=== PATIENT | male | born 1980 | race Hispanic/Latino ===

== ENCOUNTER → 2017-03-16 | Outpatient (CLI) | payer OTHER ==
--- NOTE | 2017-03-16 11:26 | Diagnostic Imaging Report ---
PROCEDURE: L-SPINE COMPLETE COMPARISON: None. INDICATIONS: LOWER BACK PAIN FINDINGS: The lumbar spine is in anatomic alignment without evidence of fracture, spondylolisthesis, or spondylolysis. Vertebral body heights and disc spaces are maintained. The paraspinal soft tissues are normal. CONCLUSION: No acute osseous abnormalities. Dictated by: Layo Sam M.D. on 03/16/2017 at 11:36 Electronically approved by: Layo Sam M.D. on 03/16/2017 at 11:36
== END ==
LOC: RAD 10:43
PROVIDERS: ATTEND Family Medicine
DX: M54.5 Low back pain (principal)
CPT/HCPCS: 72110

== ENCOUNTER 2017-07-30 17:01 | Emergency (ER) | payer BC, OTHER ==
[~2017-07-30] VITALS: Ht 177.8 cm; Wt 99.8 kg
[2017-07-30] MEDS ORDERED: SODIUM CHLORIDE 0.9% 1000ML 1,000 ML IV STA (17:12)
[2017-07-30] MEDS ORDERED: MORPHINE SULFATE 4 MG/ML SYR IV STA (17:12)
[2017-07-30] MEDS ORDERED: ONDANSETRON HCL INJ 2 MG/ML VIAL IV STA (17:12)
[2017-07-30] MEDS ORDERED: MORPHINE SULFATE 2 MG/ML SYR ONE (17:53)
[2017-07-30 18:01] LABS: CLARITY,URINE CLEAR (CLEAR); COLOR,URINE YELLOW (YELLOW)
[2017-07-30 18:02] LABS: BILIRUBIN,URINE NEGATIVE (NEGATIVE); KETONES,URINE NEGATIVE (NEGATIVE); LEUKOCYTE ESTERASE ,URINE NEGATIVE (NEGATIVE); NITRITE,URINE NEGATIVE (NEGATIVE); PROTEIN,URINE DIPSTICK NEGATIVE (NEGATIVE); URINE UROBILINOGEN 0.2 mg/dL (0.2 - 1)
[2017-07-30 18:07] LABS: BASOPHILS % 0.3 % (0.0-1.0); EOSINOPHILS # (AUTO) 0.2 (0.0-0.4); EOSINOPHILS % 1.3 % (0.0-6.0); HEMATOCRIT 41.8 % (38.2-49.6); HEMOGLOBIN 13.9 g/dL (14.0-18.0); LYMPHOCYTES # (AUTO) 3.8 (1.0-3.2); LYMPHOCYTES % 30.5 % (18.0-39.1); MEAN CORPUSCULAR HEMOGLOBIN 28.7 pg (28-32); MEAN CORPUSCULAR HGB CONC 33.3 g/dL (31-35); MEAN CORPUSCULAR VOLUME 86.4 fL (81-99); MONOCYTES # (AUTO) 0.7 (0.2-0.8); NEUTROPHILS # (AUTO) 7.7 (2.1-6.9); NEUTROPHILS % 61.6 % (38.7-80.0); PLATELET COUNT 332 x10e3/uL (140-360); RED BLOOD COUNT 4.84 x10e6/uL (4.3-5.7); RED CELL DISTRIBUTION WIDTH 12.5 % (11.7-14.4)
[2017-07-30 18:13] LABS: TRANSITIONAL EPI CELLS,URINE RARE
[2017-07-30 18:14] LABS: RBC,URINE 21-50 /HPF (0-5); WBC,URINE (MAN) 0-5 /HPF (0-5)
[2017-07-30 18:15] LABS: AMORPHOUS SEDIMENT,URINE RARE (FEW)
[2017-07-30 18:24] LABS: ALANINE AMINOTRANSFERASE 26 IU/L (0-55); ALKALINE PHOSPHATASE 92 IU/L (40-150); ANION GAP 14.6 mmol/L (8-16); BLOOD UREA NITROGEN 13 mg/dL (7-26); BUN/CREATININE RATIO 16 (6-25); CALCIUM 9.9 mg/dL (8.4-10.2); CARBON DIOXIDE 30 mmol/L (22-29); CHLORIDE 103 mmol/L (98-107); EST GLOMERULAR FILTRATION RATE > 60 ML/MIN (60-); GLUCOSE 93 mg/dL (74-118); POTASSIUM 3.6 mmol/L (3.5-5.1); SODIUM 144 mmol/L (136-145)
--- NOTE | 2017-07-30 18:28 | Diagnostic Imaging Report ---
EXAM: CT Abdomen and Pelvis WITHOUT contrast INDICATION: Back pain. Right flank pain. \S\STONE PROTOCOL COMPARISON: CT abdomen and pelvis 12/06/2013 TECHNIQUE: Abdomen and pelvis were scanned utilizing a multidetector helical scanner from the lung base to the pubic symphysis without administration of IV contrast. Absence of intravenous contrast decreases sensitivity for detection of focal lesions and vascular pathology. Coronal and sagittal reformations were obtained. Stone protocol is performed. IV CONTRAST: None ORAL CONTRAST: Water COMPLICATIONS: None RADIATION DOSE: Total DLP: 994.43 mGy*cm Estimated effective dose: (DLP x 0.015 x size factor) mSv CTDIvol has been reviewed. It is below the limits set by the Radiation Protocol Committee (RPC). FINDINGS: LINES and TUBES: None. LOWER THORAX: Unremarkable HEPATOBILIARY: No focal hepatic lesions. No biliary ductal dilation. GALLBLADDER: There are cholecystectomy clips. SPLEEN: No splenomegaly. PANCREAS: No focal masses or ductal dilatation. ADRENALS: No adrenal nodules KIDNEYS/URETERS: Compensatory hypertrophy of the right kidney with atrophic left kidney with multifocal scarring. Mild bilateral pelviectasis, unchanged. No cystic or solid mass lesions. 0.55 cm stone at the right UPJ junction is unchanged. Previous mild inflammatory changes have resolved. GI TRACT: No abnormal distention, wall thickening, or evidence of bowel obstruction. Appendix is normal. PELVIC ORGANS/BLADDER: Unremarkable. LYMPH NODES: No lymphadenopathy. VESSELS: Unremarkable. PERITONEUM / RETROPERITONEUM: No free air or fluid. BONES: Unremarkable. SOFT TISSUES: Unremarkable. IMPRESSION: No change of 0.55 cm stone in the right UPJ. Mild bilateral renal pelviectasis, which is unchanged. No evidence of obstruction. Signed by: Dr. David Ross M.D. on 07/30/2017 6:24 PM
[2017-07-30] MEDS ORDERED: KETOROLAC TROMETHAMINE 30 MG/ML VIAL IV STA (18:44)
[2017-07-30 19:29] VITALS: BP 123/74
== END 2017-07-30 19:05 | disposition home or self-care (01) ==
LOC: ER 17:01
DX: N20.1 Calculus of ureter (principal)
CPT/HCPCS: 36415; 74176; 80053; 81001; 85025; 87086; 99284; J2270; J2405; J7030

== ENCOUNTER → 2017-08-24 | Day surgery (SDC) | payer BC ==
[~2017-08-24] MED LIST: CEFTRIAXONE SOD 1 GM VIAL ONE; DEXAMETHASONE SOD PHOS INJ 4 MG/ML VIAL ONE; FENTANYL CITRATE/PF 100MCG/2 ML INJ ONE; FLOMAX0.4 MG PO; IOPAMIDOL 300MG/ML 50ML INFUS..BTL IV ONE; LIDOCAINE HCL 2% LOCAL INJ 5 ML SDV VIAL INJ ONE; MIDAZOLAM HCL 2 MG/2 ML VIAL ONE; ONDANSETRON HCL INJ 2 MG/ML VIAL ONE; PROPOFOL IV EMULSION 10 MG/ML 20 ML VIAL ONE; SEVOFLURANE INHAL SOLN 250 ML PEN BTL ONE; TYLENOL WITH C1 EACH PO
--- NOTE | 2017-08-24 13:45 | Diagnostic Imaging Report ---
PROCEDURE:X-RAY ABDOMEN - KUB COMPARISON:CT abdomen and pelvis 07/30/2017. INDICATIONS:RENAL STONES FINDINGS: 4 mm ovoid calculus projecting inferomedial to the right renal shadow may represent the ureteropelvic junction calculus identified on comparison CT. No additional calcifications project over the renal shadows or expected ureteral courses. Bowel gas pattern is nonobstructive. Regional skeletal structures are intact. CONCLUSION: Questionable visualization of the right ureteropelvic junction calculus identified on comparison CT 07/30/2017. No additional plain film evidence of urolithiasis. Dictated by: Bharathi David M.D. on 08/24/2017 at 13:50 Electronically approved by: Bharathi David M.D. on 08/24/2017 at 13:50
--- NOTE | 2017-08-26 07:45 | Operative Report ---
DATE OF PROCEDURE: August 24, 2017 UROLOGY OPERATIVE REPORT PREOPERATIVE DIAGNOSIS: Right ureteral calculus. POSTOPERATIVE DIAGNOSIS: Right renal calculus. PROCEDURES 1. Cystourethroscopy with right stone manipulation (entire separate procedure performed for right ureteral calculus. 2. Staged right-sided shockwave lithotripsy (entire separate procedure for right kidney stone). 3. Supervision of fluoroscopy. 4. Interpretation of retrograde pyelography. ANESTHESIA: General. ESTIMATED BLOOD LOSS: Minimal. COMPLICATIONS: None. INDICATIONS: Mr. Jay is a 37-year-old male with symptomatic right ureteral stone. He and I had a long discussion about alternatives, risks, and benefits including doing nothing, ureteroscopy, shockwave lithotripsy, percutaneous surgery, open surgery. He voiced understanding of the options, alternatives, risks, and benefits and elected to proceed. PROCEDURE IN DETAIL: After informed consent was obtained, the patient was taken to the operative site and placed supine on the table, and underwent general anesthesia by the anesthesia service. He was then placed in the dorsal lithotomy position and sterilely prepped and draped in the standard fashion for cystoscopy. A 22.5-Z[place]ian cystoscope was inserted per urethra. It was noted to pass normal. Panendoscopy of the bladder revealed no tumors and no stones. Right ureteral orifice was catheterized. A 5-Z[place]ian open-ended catheter was advanced to the level of the proximal ureteral stone. A vigorous injection of contrast moved the stone somewhat. Utilizing a guidewire and an open-ended catheter, the stone was manipulated into the renal pelvis. At this time, with the higher success rate, the stone was localized in the x, y, and z planes. A total of 3000 shocks were delivered to the kidney stone. The stone was seen to have good fragmentation. There was good drainage of the contrast. There was no evidence of obstruction, so stent was not left. The bladder was drained. The patient was awakened from anesthesia and transported to the recovery room in excellent condition. SUPERVISION OF FLUOROSCOPY, INTERPRETATION OF RETROGRADE PYELOGRAPHY: I was present throughout the entire procedure and I supervised fluoroscopy. There was no radiologist present at any time during this procedure. Attention was turned toward the right ureteral orifice, catheterized with a 5-Z[place]ian open-ended catheter. Retrograde pyelogram was performed revealing a delicate ureter. Manipulation of the right ureteral calculus into the right renal pelvis. Postoperative views on the right side revealed good fragmentation of right renal calculus. No evidence of hydronephrosis. Job#: [id number] CQ
== END | disposition home or self-care (01) ==
LOC: OR 12:36
PROVIDERS: ATTEND Urology
DX: N20.1 Calculus of ureter (principal); N13.30 Unspecified hydronephrosis; I10 Essential (primary) hypertension; Z68.31 Body mass index [BMI] 31.0-31.9, adult; Z84.1 Family history of disorders of kidney and ureter
CPT/HCPCS: 50590; 74018; J0696; J1100; J2001; J2250; J2405; Q9967

== ENCOUNTER → 2017-09-20 | Outpatient (CLI) | payer BC ==
[~2017-09-20] MED LIST changes: -CEFTRIAXONE SOD 1 GM VIAL ONE; -DEXAMETHASONE SOD PHOS INJ 4 MG/ML VIAL ONE; -FENTANYL CITRATE/PF 100MCG/2 ML INJ ONE; -IOPAMIDOL 300MG/ML 50ML INFUS..BTL IV ONE; -LIDOCAINE HCL 2% LOCAL INJ 5 ML SDV VIAL INJ ONE; -MIDAZOLAM HCL 2 MG/2 ML VIAL ONE; -ONDANSETRON HCL INJ 2 MG/ML VIAL ONE; -PROPOFOL IV EMULSION 10 MG/ML 20 ML VIAL ONE; -SEVOFLURANE INHAL SOLN 250 ML PEN BTL ONE
--- NOTE | 2017-09-20 12:22 | Diagnostic Imaging Report ---
PROCEDURE:X-RAY ABDOMEN - KUB COMPARISON:[facility], DX, ABDOMEN-1VIEW (KUB), 08/24/2017, 13:24. INDICATIONS:KIDNEY STONE FINDINGS: There is a non-obstructed bowel-gas pattern. The previously visualized 4 mm radiopaque density projecting inferomedial to the right renal shadow on prior exam is not seen on the current exam. No radiopaque densities project over the renal shadows, expected course of the ureters or bladder. No acute bony abnormalities. CONCLUSION: No radiopaque densities project over the genitourinary system. The previously visualized 4 mm radiopaque density projecting inferomedial to the right renal shadow on prior exam is not seen on the current exam. Brandon Almendarez M.D. Dictated by: Brandon Almendarez M.D. on 09/20/2017 at 12:27 Electronically approved by: Brandon Almendarez M.D. on 09/20/2017 at 12:27
== END ==
LOC: RAD 10:49
PROVIDERS: ATTEND Urology
DX: N13.30 Unspecified hydronephrosis (principal); R31.21 Asymptomatic microscopic hematuria
CPT/HCPCS: 74018

== ENCOUNTER 2019-01-30 07:52 | Emergency (ER) | payer BC ==
[~2019-01-30] VITALS: Ht 177.8 cm; Wt 99.8 kg
[2019-01-30] MEDS ORDERED: SODIUM CHLORIDE 0.9% 1000ML 1,000 ML ONE (08:27)
[2019-01-30] MEDS ORDERED: KETOROLAC TROMETHAMINE 30 MG/ML VIAL ONE (08:27)
[2019-01-30] MEDS ORDERED: CEFTRIAXONE SOD 1 GM/NS 50 ML 50 ML IV STA (08:29)
[2019-01-30] MEDS ORDERED: MORPHINE SULFATE INJ 4 MG/ML INJ 1ML IV STA (08:29)
[2019-01-30] MEDS ORDERED: ONDANSETRON HCL INJ 2MG/ML 2ML 2 MG/ML VIAL IV STA (08:29)
[2019-01-30] MEDS ORDERED: SODIUM CHLORIDE 0.9% 1000ML 1,000 ML IV STA (08:29)
[2019-01-30] MEDS ORDERED: KETOROLAC TROMETHAMINE 30 MG/ML VIAL IV STA (08:29)
[2019-01-30 08:42] LABS: BASOPHILS % 0.3 % (0.0-1.0); EOSINOPHILS # (AUTO) 0.2 (0.0-0.4); EOSINOPHILS % 2.3 % (0.0-6.0); HEMATOCRIT 43.8 % (38.2-49.6); HEMOGLOBIN 14.4 g/dL (14.0-18.0); LYMPHOCYTES # (AUTO) 2.5 (1.0-3.2); LYMPHOCYTES % 24.7 % (18.0-39.1); MEAN CORPUSCULAR HEMOGLOBIN 28.5 pg (28-32); MEAN CORPUSCULAR HGB CONC 32.9 g/dL (31-35); MEAN CORPUSCULAR VOLUME 86.6 fL (81-99); MONOCYTES # (AUTO) 0.5 (0.2-0.8); NEUTROPHILS # (AUTO) 6.8 (2.1-6.9); NEUTROPHILS % 67.2 % (38.7-80.0); PLATELET COUNT 352 x10e3/uL (140-360); RED BLOOD COUNT 5.06 x10e6/uL (4.3-5.7); RED CELL DISTRIBUTION WIDTH 12.5 % (11.7-14.4)
[2019-01-30 08:46] LABS: CLARITY,URINE CLEAR (CLEAR); COLOR,URINE YELLOW (YELLOW)
[2019-01-30 08:47] LABS: KETONES,URINE NEGATIVE (NEGATIVE); LEUKOCYTE ESTERASE ,URINE NEGATIVE (NEGATIVE); NITRITE,URINE NEGATIVE (NEGATIVE); PROTEIN,URINE DIPSTICK NEGATIVE (NEGATIVE)
[2019-01-30 08:48] LABS: BILIRUBIN,URINE NEGATIVE (NEGATIVE); URINE UROBILINOGEN 0.2 mg/dL (0.2 - 1)
[2019-01-30 08:59] LABS: BACTERIA,URINE FEW /HPF; EPITHELIAL CELLS,URINE FEW /LPF; RBC,URINE 0-5 /HPF (0-5); WBC,URINE (MAN) 0-5 /HPF (0-5)
[2019-01-30 09:14] LABS: ALANINE AMINOTRANSFERASE 20 IU/L (0-55); ALKALINE PHOSPHATASE 92 IU/L (40-150); ANION GAP 13.5 mmol/L (8-16); BLOOD UREA NITROGEN 11 mg/dL (7-26); BUN/CREATININE RATIO 14 (6-25); CALCIUM 9.5 mg/dL (8.4-10.2); CARBON DIOXIDE 26 mmol/L (22-29); CHLORIDE 103 mmol/L (98-107); CREATININE, SERUM 0.81 mg/dL (0.72-1.25); EST GLOMERULAR FILTRATION RATE > 60 ML/MIN (60-); GLUCOSE 94 mg/dL (74-118); POTASSIUM 4.5 mmol/L (3.5-5.1); SODIUM 138 mmol/L (136-145)
--- NOTE | 2019-01-30 10:02 | Diagnostic Imaging Report ---
CT of the abdomen and pelvis, without contrast. History: Flank pain. Comparison: CT abdomen/pelvis without contrast from 07/20/2017. Technique: Multidetector CT scanning of the abdomen and pelvis was performed from the level of the lung bases to the inferior pubic rami after intravenous and oral administration of contrast. Coronal and sagittal multiplanar reformations were obtained. RADIATION DOSE: Total DLP: 883.46 mGy*cm Dose modulation, iterative reconstruction, and/or weight based adjustment of the mA/kV was utilized to reduce the radiation dose to as low as reasonably achievable. FINDINGS: A partially visualized calcified pleural plaque is identified within the anterior left hemithorax on the first few images of the examination. A calcified granuloma is noted within the lingula. The visualized lungs are otherwise unremarkable. The imaged portion the heart demonstrates no significant abnormalities. The liver is normal in size and attenuation on this noncontrast enhanced examination. The gallbladder is surgically absent. There is no biliary ductal dilatation. The stomach, spleen, pancreas, and bilateral adrenal glands demonstrate unremarkable noncontrast appearance. Stable atrophic changes of the left kidney with areas of multifocal scarring/cortical thinning. The right kidney is normal in size and location. There is no evidence for nephrolithiasis. There is stable bilateral pelviectasis without true intrarenal hydronephrosis. Probable extrarenal pelvis noted on the left. The ureters are normal course and caliber without evidence for radiopaque stone. The urinary bladder and prostate demonstrate no significant abnormalities. The abdominal aorta is normal course and caliber. The IVC is normal in caliber. The visualized loops of small and large bowel demonstrate no evidence of obstruction or inflammation. The appendix is visualized and appears unremarkable. There is no ascites or intraperitoneal free air. No abnormally enlarged lymph nodes are identified within the abdomen or pelvis. A tiny fat-containing left inguinal hernia is noted. The osseous structures demonstrate no evidence for acute fracture or destructive process. The extraperitoneal soft tissues are unremarkable. IMPRESSION: 1. No acute abdominopelvic process identified. Specifically no evidence for nephrolithiasis or obstructive uropathy. 2. Stable atrophic changes of the left kidney. 3. Partially visualized calcified pleural plaque noted within the anterior left hemithorax. Signed by: Dr. Alejandro Livingston MD on 01/30/2019 9:58 AM
[2019-01-30 10:14] LABS: LIPASE 28 U/L (8-78)
== END 2019-01-30 11:21 | disposition home or self-care (01) ==
LOC: ER 07:52
DX: R10.9 Unspecified abdominal pain (principal); S39.012A Strain of muscle, fascia and tendon of lower back, initial encounter
CPT/HCPCS: 36415; 74176; 80053; 81001; 83690; 85025; 87086; 99284; J0696; J1885; J7030

== ENCOUNTER 2020-05-15 09:37 | Emergency (ER) | payer BC ==
[~2020-05-15] VITALS: Ht 180.3 cm; Wt 113.4 kg
[2020-05-15] MEDS ORDERED: ONDANSETRON HCL INJ 2MG/ML 2ML 2 MG/ML VIAL IV STA (09:58)
[2020-05-15] MEDS ORDERED: SODIUM CHLORIDE 0.9% 1000ML 1,000 ML IV STA (09:58)
[2020-05-15] MEDS ORDERED: KETOROLAC TROMETHAMINE 30 MG/ML VIAL IV STA (09:58)
[2020-05-15 10:25] LABS: BASOPHILS % 0.2 % (0.0-1.0); EOSINOPHILS # (AUTO) 0.2 (0.0-0.4); EOSINOPHILS % 1.8 % (0.0-6.0); HEMATOCRIT 42.3 % (38.2-49.6); LYMPHOCYTES # (AUTO) 2.4 (1.0-3.2); LYMPHOCYTES % 25.1 % (18.0-39.1); MEAN CORPUSCULAR HEMOGLOBIN 28.8 pg (28-32); MEAN CORPUSCULAR HGB CONC 33.1 g/dL (31-35); MONOCYTES # (AUTO) 0.6 (0.2-0.8); NEUTROPHILS # (AUTO) 6.3 (2.1-6.9); NEUTROPHILS % 66.5 % (38.7-80.0); PLATELET COUNT 365 x10e3/uL (140-360); RED BLOOD COUNT 4.86 x10e6/uL (4.3-5.7)
[2020-05-15 10:44] LABS: CLARITY,URINE CLEAR (CLEAR); COLOR,URINE YELLOW (YELLOW); LEUKOCYTE ESTERASE ,URINE NEGATIVE (NEGATIVE); NITRITE,URINE NEGATIVE (NEGATIVE); PROTEIN,URINE DIPSTICK NEGATIVE (NEGATIVE)
[2020-05-15 10:45] LABS: KETONES,URINE TRACE (NEGATIVE); URINE UROBILINOGEN 0.2 mg/dL (0.2 - 1)
[2020-05-15 10:46] LABS: INR 0.96; PROTHROMBIN TIME 13.3 seconds (11.9-14.5)
[2020-05-15 10:47] LABS: ALANINE AMINOTRANSFERASE 29 IU/L (0-55); ALBUMIN 3.8 g/dL (3.5-5.0); ALBUMIN/GLOBULIN RATIO 0.9 (0.8-2.0); ALKALINE PHOSPHATASE 87 IU/L (40-150); ANION GAP 13.9 mmol/L (8-16); BLOOD UREA NITROGEN 9 mg/dL (7-26); BUN/CREATININE RATIO 11 (6-25); CARBON DIOXIDE 27 mmol/L (22-29); CHLORIDE 105 mmol/L (98-107); CREATININE, SERUM 0.81 mg/dL (0.72-1.25); EST GLOMERULAR FILTRATION RATE > 60 ML/MIN (60-); GLUCOSE 79 mg/dL (74-118); MAGNESIUM 1.9 MG/DL (1.3-2.1); PARTIAL THROMBOPLASTIN TIME 33.1 seconds (23.8-35.5); POTASSIUM 3.9 mmol/L (3.5-5.1); SODIUM 142 mmol/L (136-145)
[2020-05-15 10:51] LABS: EPITHELIAL CELLS,URINE RARE /LPF; RBC,URINE 0-5 /HPF (0-5)
[2020-05-15] MEDS ORDERED: CEFTRIAXONE SOD 1 GM/50 ML BAG IV ONE (11:30)
[2020-05-15] MEDS ORDERED: CEFTRIAXONE SOD 1 GM in SODIUM CHLORIDE 0.9% 50ML 50 ML IV ONE (12:00)
[2020-05-15] MEDS ORDERED: AZITHROMYCIN 250 MG TAB PO ONE (12:00)
[2020-05-15 12:09] VITALS: BP 133/82
== END 2020-05-15 12:12 | disposition home or self-care (01) ==
LOC: ER 10:00
DX: R10.9 Unspecified abdominal pain (principal); Z87.442 Personal history of urinary calculi; Z90.49 Acquired absence of other specified parts of digestive tract
CPT/HCPCS: 36415; 74176; 80053; 81001; 83735; 85025; 85610; 85730; 87086; 99284; J0696; J1885; J2405; J7030

== ENCOUNTER 2021-09-28 18:23 | Emergency (ER) | payer BC ==
[~2021-09-28] VITALS: Ht 180.3 cm; Wt 113.4 kg
[2021-09-28] MEDS ORDERED: ONDANSETRON HCL INJ 2MG/ML 2ML 2 MG/ML VIAL IV STA (19:14)
[2021-09-28] MEDS ORDERED: KETOROLAC TROMETHAMINE 30 MG/ML VIAL IV STA (19:14)
[2021-09-28 19:26] LABS: BASOPHILS % 0.2 % (0.0-1.0); EOSINOPHILS # (AUTO) 0.2 (0.0-0.4); EOSINOPHILS % 1.1 % (0.0-6.0); HEMATOCRIT 44.2 % (38.2-49.6); HEMOGLOBIN 14.4 g/dL (14.0-18.0); LYMPHOCYTES # (AUTO) 3.8 (1.0-3.2); LYMPHOCYTES % 27.1 % (18.0-39.1); MEAN CORPUSCULAR HEMOGLOBIN 28.5 pg (28-32); MEAN CORPUSCULAR HGB CONC 32.6 g/dL (31-35); MEAN CORPUSCULAR VOLUME 87.4 fL (81-99); MONOCYTES # (AUTO) 0.9 (0.2-0.8); NEUTROPHILS # (AUTO) 9.2 (2.1-6.9); NEUTROPHILS % 65.2 % (38.7-80.0); PLATELET COUNT 370 x10e3/uL (140-360); RED BLOOD COUNT 5.06 x10e6/uL (4.3-5.7); RED CELL DISTRIBUTION WIDTH 12.5 % (11.7-14.4)
[2021-09-28 19:42] LABS: ANION GAP 16.4 mmol/L (8-16); CALCIUM 9.6 mg/dL (8.4-10.2); CREATININE, SERUM 0.86 mg/dL (0.72-1.25); POTASSIUM 3.4 mmol/L (3.5-5.1)
[2021-09-28 20:14] LABS: CLARITY,URINE CLEAR (CLEAR); COLOR,URINE YELLOW (YELLOW); KETONES,URINE NEGATIVE (NEGATIVE); LEUKOCYTE ESTERASE ,URINE NEGATIVE (NEGATIVE); NITRITE,URINE NEGATIVE (NEGATIVE); PROTEIN,URINE DIPSTICK NEGATIVE (NEGATIVE); URINE UROBILINOGEN 0.2 mg/dL (0.2 - 1)
[2021-09-28 20:29] LABS: BACTERIA,URINE FEW /HPF; EPITHELIAL CELLS,URINE RARE /LPF; RBC,URINE >50 /HPF (0-5); WBC,URINE (MAN) 0-5 /HPF (0-5)
[2021-09-28] MEDS ORDERED: ONDANSETRON ODT4 MG PO (21:04)
[2021-09-28] MEDS ORDERED: HYDROCODON-ACE1 EAC9 PO (21:04)
[2021-09-28] MEDS ORDERED: FLOMAX0.4 MG PO (21:04)
[2021-09-28] MEDS ORDERED: CEFDINIR300 MG PO (21:04)
[2021-09-28 21:24] VITALS: BP 132/98
== END 2021-09-28 21:26 | disposition home or self-care (01) ==
LOC: ER 18:34
DX: N13.2 Hydronephrosis with renal and ureteral calculous obstruction (principal)
CPT/HCPCS: 36415; 74176; 80048; 81001; 85025; 99284; J1885; J2405

== ENCOUNTER → 2021-10-06 | Outpatient (CLI) | payer BC ==
[~2021-10-06] MED LIST changes: +CEFDINIR300 MG PO; +HYDROCODON-ACE1 EAC9 PO; +ONDANSETRON ODT4 MG PO
== END ==
LOC: RAD 10:26
PROVIDERS: ATTEND Urology
DX: N20.0 Calculus of kidney (principal)
CPT/HCPCS: 74018

== ENCOUNTER 2021-12-05 14:50 | Emergency (ER) | payer BC ==
[~2021-12-05] VITALS: Ht 180.3 cm; Wt 113.4 kg
[2021-12-05 15:52] LABS: CLARITY,URINE CLOUDY (CLEAR); COLOR,URINE YELLOW (YELLOW); KETONES,URINE TRACE (NEGATIVE); LEUKOCYTE ESTERASE ,URINE NEGATIVE (NEGATIVE); NITRITE,URINE NEGATIVE (NEGATIVE); PROTEIN,URINE DIPSTICK NEGATIVE (NEGATIVE); URINE UROBILINOGEN 0.2 mg/dL (0.2 - 1)
[2021-12-05 16:07] LABS: BACTERIA,URINE MODERATE /HPF; EPITHELIAL CELLS,URINE FEW /LPF; MUCUS,URINE FEW (RARE); RBC,URINE >50 /HPF (0-5)
[2021-12-05] MEDS ORDERED: ONDANSETRON HCL INJ 2MG/ML 2ML 2 MG/ML VIAL IV STA (16:37)
[2021-12-05] MEDS ORDERED: KETOROLAC TROMETHAMINE 30 MG/ML VIAL IV STA (16:37)
[2021-12-05] MEDS ORDERED: SODIUM CHLORIDE 0.9% 1000ML 1,000 ML IV SCH (16:45)
[2021-12-05 16:51] LABS: BASOPHILS % 0.3 % (0.0-1.0); EOSINOPHILS # (AUTO) 0.3 (0.0-0.4); EOSINOPHILS % 2.2 % (0.0-6.0); HEMATOCRIT 42.7 % (38.2-49.6); HEMOGLOBIN 13.7 g/dL (14.0-18.0); LYMPHOCYTES # (AUTO) 3.4 (1.0-3.2); LYMPHOCYTES % 27.6 % (18.0-39.1); MEAN CORPUSCULAR HEMOGLOBIN 28.7 pg (28-32); MEAN CORPUSCULAR HGB CONC 32.1 g/dL (31-35); MEAN CORPUSCULAR VOLUME 89.5 fL (81-99); MONOCYTES # (AUTO) 0.7 (0.2-0.8); MONOCYTES % 5.6 % (4.4-11.3); NEUTROPHILS % 64.1 % (38.7-80.0); PLATELET COUNT 367 x10e3/uL (140-360); RED BLOOD COUNT 4.77 x10e6/uL (4.3-5.7); RED CELL DISTRIBUTION WIDTH 12.4 % (11.7-14.4)
[2021-12-05] MEDS ORDERED: ONDANSETRON HCL INJ 2MG/ML 2ML 2 MG/ML VIAL ONE (16:53)
[2021-12-05] MEDS ORDERED: SODIUM CHLORIDE 0.9% 1000ML 1,000 ML ONE (16:54)
[2021-12-05] MEDS ORDERED: KETOROLAC TROMETHAMINE 30 MG/ML VIAL ONE (16:54)
[2021-12-05 17:03] LABS: ALBUMIN 3.7 g/dL (3.5-5.0); ALBUMIN/GLOBULIN RATIO 0.9 (0.8-2.0); ANION GAP 16.7 mmol/L (8-16); CALCIUM 9.2 mg/dL (8.4-10.2); CREATININE, SERUM 0.85 mg/dL (0.72-1.25); POTASSIUM 3.7 mmol/L (3.5-5.1)
[2021-12-05] MEDS ORDERED: CEFDINIR300 MG PO (17:59)
[2021-12-05] MEDS ORDERED: NITROGLYCERIN 2% OINT 1 GM PKT TOP ONE (18:00)
[2021-12-05] MEDS ORDERED: AZO STANDARD95 MG PO (18:00)
[2021-12-05] MEDS ORDERED: FLOMAX0.4 MG PO (18:17)
== END 2021-12-05 18:27 | disposition home or self-care (01) ==
LOC: ER 15:15
DX: R10.30 Lower abdominal pain, unspecified (principal); N39.0 Urinary tract infection, site not specified; N20.1 Calculus of ureter; N28.9 Disorder of kidney and ureter, unspecified
CPT/HCPCS: 36415; 74176; 80053; 81001; 85025; 87086; 99284; J1885; J7030; J2405